=== PATIENT | male | born 1985 | race Caucasian/White ===

== ENCOUNTER 2021-12-28 17:50 | Emergency (ER) | payer MEDICAID, SELFPAY ==
--- NOTE | ~2021-12-28 | XR_ITS ---
XR hand RT min 3V DATE: 12/28/2021 18:15 INDICATION: Jamming injury. Dorsal pain and swelling in region of fifth metacarpal TECHNIQUE: 3 views COMPARISON: None FINDINGS: There is soft tissue swelling of the dorsum of the right hand. No fracture, dislocation, periosteal reaction or bone destruction, joint space narrowing, erosive clay[place] nge, radiopaque foreign body or subcutaneous emphysema is noted. IMPRESSION: Dorsal soft tissue swelling Reviewed, dictated and finalized at location A. IMPRESSION: Dorsal soft tissue swelling
[2021-12-28 18:07] VITALS: BP 169/94; PULSE 87; RESP 20; TEMP 36.6; O2SAT 100
--- NOTE | 2021-12-28 18:27 | ED.UPPEXIN ---
HPI - Extremity Injury (Upper) General Chief Complaint: Extremity Injury, Upper Stated Complaint: Right Hand Injury Time Seen by Provider: 12/28/21 18:15 Source: patient, RN notes reviewed and old records reviewed Mode of arrival: ambulatory Limitations: no limitations History of Present Illness HPI narrative: 36 year old male who presents to [facility] care with complaints of injury to his right hand which occurred this morning. He reports that he was using a hydraulic press and his right hand got caught. He has noted soft tissue swelling to his dorsal right hand with pain to area along 5th metatarsal area. Patient reports that he has used ice and has been elevating his right hand, describes pain as throbbing.Patient has adequate sensation and circulation to right hand with mobility increasing his discomfort.Patient is right hand dominant. MD complaint: injury to: right and hand Onset (ago): hour(s) (this morning) Other Extremity Injury: Right: hand Other injuries: none Handedness: right Place: home Severity: mild Severity scale (1-10): 3 Exacerbating factors: movement of extremity Context: direct blow Treatments prior to arrival: cold therapy Related Data Home Medications Medication Instructions Recorded Confirmed No Home Medications 12/28/21 12/28/21 Allergies Allergy/AdvReac Type Severity Reaction Status Date / Time No Known Allergies Allergy Verified 12/28/21 18:10 Review of Systems Review of Systems: CONSTITUTIONAL: Denies fever, chills, or sweats. EYES: Denies visual changes, redness, or discharge. ENT: Denies rhinorrhea, congestion, sore throat, or otalgia. CARDIOVASCULAR: Denies chest pain, palpitations, or edema. RESPIRATORY: Denies cough or dyspnea. GASTROINTESTINAL: Denies abdominal pain, nausea, vomiting, or diarrhea. GENITOURINARY: Denies dysuria or hematuria. SKIN: Denies rash or itching. MUSCULOSKELETAL: Denies back pain,positive pain to his right hand with swelling, or myalgia. NEUROLOGIC: Denies headache, numbness, or weakness. PSYCHIATRIC: Denies anxiety or depression. All systems reviewed & are unremarkable except as noted in HPI and below PMFSH Past Medical History Medical History (Updated 12/29/21 @ 07:34 by Fay aKtz NP) Fracture of left upper extremity Surgical History Surgical History (Updated 12/29/21 @ 07:28 by Fay Katz NP) History of tonsillectomy and adenoidectomy Social History Social History (Updated 12/29/21 @ 07:29 by Fay Katz NP) Smoking packs per day: 1 Smoking cigarettes per day: 20.0 Years smoked: 15 Smoking pack-years: 15.00 Smoking status: Current every day smoker Comments At time of signature, agree with nursing past medical, surgical, social and family history. There is no relevant family history pertinent to the presenting complaint Exam Narrative: GENERAL: Well-appearing, well-nourished, and in no acute distress. HEAD: Normocephalic, atraumatic. EYES: PERRLA and EOMI. ENT: Nares clear, no rhinorrhea or epistaxis. Mucous membranes moist.TM's normal with good light reflex, throat pink with no lesions or exudates, no tonsils present NECK: Supple.no lymphadenopathy CHEST: Clear to auscultation. No respiratory distress.SAO2 100% on room air HEART: Regular rate and rhythm. No murmur heard. Normal peripheral pulses. ABDOMEN: Soft, nontender, nondistended, normal active bowel sounds. EXTREMITIES: Normal range of motion. No edema.Exception noted to right dorsal hand which has noted soft tissue swelling with pain along 5h metacarpal region, right radial pulse strong, nail beds have brisk capillary refill, mobility of right hand increases pain. SKIN: Warm, dry, no rash. NEURO: No focal deficits. Alert and oriented x3. Course Course Level of Care: Express Care Visit Vital Signs Vital signs: Vital Signs Temperature 36.6 C 12/28/21 18:07 Pulse Rate 87 12/28/21 18:07 Respiratory Rate 20 12/28/21 18:07 Blood Pressure
== END 2021-12-28 18:45 | disposition home or self-care (01) ==
PROVIDERS: Emergency Provider Registered Nurse
DX: S69.91XA Unspecified injury of right wrist, hand and finger(s), initial encounter (principal); X58.XXXA Exposure to other specified factors, initial encounter; F17.210 Nicotine dependence, cigarettes, uncomplicated
CPT/HCPCS: 73130; 99203; G0463

== ENCOUNTER 2023-08-15 12:59 | Emergency (ER) | payer OTHER, SELFPAY ==
[2023-08-15 13:05] VITALS: BP 162/114; PULSE 71; RESP 18; TEMP 36.4; O2SAT 98
--- NOTE | 2023-08-15 13:46 | ED.EAR ---
HPI - Ear Problem General Chief complaint: Ear Stated complaint: Ear Problem Time Seen by Provider: 08/15/23 13:15 Source: patient Mode of arrival: ambulatory Limitations: no limitations History of Present Illness HPI Narrative: Earl is a 38-year-old male patient presenting to the clinic today with complaints of bilateral decreased hearing. He reports that he feels as though his ears are clogged up. Tried to use hot water and Q-tips to remove ear wax but made it worse. Related Data Allergies Allergy/AdvReac Type Severity Reaction Status Date / Time No Known Allergies Allergy Verified 12/28/21 18:10 Review of Systems Review of Systems: Pertinent positives per HPI. Patient denies any fever, chills, rash, headache, visual changes, dizziness, cough, runny nose, sore throat, shortness of breath, chest pain, palpitations, nausea, vomiting, diarrhea, constipation, abdominal pain, or any urinary issues. PMFSH Past Medical History Medical History (Updated 08/15/23 @ 14:06 by Earl Graham APRN) Fracture of left upper extremity Surgical History Surgical History (Updated 12/29/21 @ 07:28 by Fay Katz NP) History of tonsillectomy and adenoidectomy Social History Social History (Updated 12/29/21 @ 07:29 by Fay Katz NP) Smoking packs per day: 1 Smoking cigarettes per day: 20.0 Years smoked: 15 Smoking pack-years: 15.00 Smoking status: Current every day smoker Comments At the time of my signature, I reviewed and agree with the nursing past medical, surgical, social, and family history. There is no relevant family history pertinent to the patient complaint. Exam Narrative: General: Well-developed, well nourished, in no apparent distress Head: Normocephalic, atraumatic Eyes: Pupils equally round and reactive to light bilaterally, EOM intact, sclera and conjunctive clear, no discharge, lids normal Ears: Bilateral cerumen impaction, tMs intact and clear, ear canals clear, no drainage, grossly hearing normal. Nose: Nares patent, no discharge, no inflammation, no sinus tenderness. Mouth: Oropharynx without lesions or masses, good dentition, MMM. Neck: Supple, trachea midline, no enlargement of anterior or posterior cervical nodes, no thyroid masses or goiter palpable. Cardio: Regular rate and rhythm, s1 and s2 normal, no murmur appreciated. Resp: Clear to auscultation bilaterally anteriorly and posteriorly, no rhonchi, rales, wheezing or rubs Course Course Emergency Course: Portions of this record may have been created with voice recognition software. Level of Care: Express Care Visit Vital Signs Vital signs: Vital Signs Temperature 36.4 C L 08/15/23 13:05 Pulse Rate 71 08/15/23 13:05 Respiratory Rate 18 08/15/23 13:05 Blood Pressure 162/114 H 08/15/23 13:05 Pulse Oximetry 98 08/15/23 13:05 Oxygen Delivery Room Air 08/15/23 13:05 Temperature 36.4 C L 08/15/23 13:05 Pulse Rate 71 08/15/23 13:05 Respiratory Rate 18 08/15/23 13:05 Blood Pressure 162/114 H 08/15/23 13:05 Pulse Oximetry 98 08/15/23 13:05 Oxygen Delivery Room Air 08/15/23 13:05 Vital signs reviewed Medical Decision Making Vital Signs Vital Signs: Vital Signs Temperature 36.4 C L 08/15/23 13:05 Pulse Rate 71 08/15/23 13:05 Respiratory Rate 18 08/15/23 13:05 Blood Pressure 162/114 H 08/15/23 13:05 Pulse Oximetry 98 08/15/23 13:05 Oxygen Delivery Room Air 08/15/23 13:05 Temperature 36.4 C L 08/15/23 13:05 Pulse Rate 71 08/15/23 13:05 Respiratory Rate 18 08/15/23 13:05 Blood Pressure 162/114 H 08/15/23 13:05 Pulse Oximetry 98 08/15/23 13:05 Oxygen Delivery Room Air 08/15/23 13:05 Discharge Plan Discharge Clinical Impression: Bilateral impacted cerumen, Irritation of external ear canal Patient Disposition: Home, Self-Care Condition: Stable Instructions: Antibiotic Form, Swimmer's Ear (ED)
== END 2023-08-15 14:13 | disposition home or self-care (01) ==
PROVIDERS: Emergency Provider Nurse Practitioner Family
DX: H61.23 Impacted cerumen, bilateral (principal); H61.893 Other specified disorders of external ear, bilateral; F17.210 Nicotine dependence, cigarettes, uncomplicated
CPT/HCPCS: 69209; 99213; A9270; G0463

== ENCOUNTER 2024-02-20 13:26 | Emergency (ER) | payer OTHER, SELFPAY ==
[2024-02-20 13:30] VITALS: BP 142/103; PULSE 80; RESP 18; TEMP 36.6; O2SAT 99
--- NOTE | 2024-02-20 13:43 | ED.BACK ---
HPI - Back Pain/Injury General Chief Complaint: Back Pain/Injury Stated Complaint: Lower back pain Time Seen by Provider: 02/20/24 13:44 Source: patient, RN notes reviewed and old records reviewed Mode of arrival: ambulatory Limitations: no limitations History of Present Illness HPI Narrative: 38 year old male presents to [facility] care with complaints of 6 week duration of waxing and waning right lower back pain with radiation of pain down right leg. Patient reports that for the past 10 days he has had increased pain in his right lower back with sciatica admits to some pain at times across lower back. Patient reports that he does get some relief with rest and heat and Ibuprofen but worsens when performing lifting , bending standing, sitting, walking while at work. Patient reports no known specific injury to back or any fall. Patient reports that he does not have PCP and needs to get established with PCP requesting list of physicians. Patient has limping gait noted, pain with positiion changes noted and verbalized. Patient denies any numbness or tingling to his legs,reports no difficulty with bowel or bladder function and denies any saddle paraesthesia. MD elicited complaint: back pain Pertinent past history: other (6 week duration with increased symptoms for past 10 days) Onset (ago): day(s) (increased symptoms for 10 days.) Severity: moderate Similar Symptoms Previously: Yes Quality: sharp and aching Location: right lower back (with sciatica) Related Data Allergies Allergy/AdvReac Type Severity Reaction Status Date / Time No Known Allergies Allergy Verified 02/20/24 13:29 Review of Systems Review of Systems: CONSTITUTIONAL: Denies fever, chills, or sweats. EYES: Denies visual changes, redness, or discharge. ENT: Denies rhinorrhea, congestion, sore throat, or otalgia. CARDIOVASCULAR: Denies chest pain, palpitations, or edema. RESPIRATORY: Denies cough or dyspnea. GASTROINTESTINAL: Denies abdominal pain, nausea, vomiting, or diarrhea. GENITOURINARY: Denies dysuria or hematuria. SKIN: Denies rash or itching. MUSCULOSKELETAL:Reports right sided back pain with sciatica,no other joint pain, or myalgia. NEUROLOGIC: Denies headache, numbness, or weakness. PSYCHIATRIC: Denies anxiety or depression. All systems reviewed & are unremarkable except as noted in HPI and below [facility] Past Medical History Medical History (Updated 02/21/24 @ 11:46 by Fay Katz NP) Dental abscess Fracture of left upper extremity Kidney stone Surgical History Surgical History (Updated 02/21/24 @ 11:45 by Fay Katz NP) History of orthopedic surgery left arm and left foot History of tonsillectomy and adenoidectomy Social History Social History (Updated 02/21/24 @ 11:41 by Fay Katz NP) Smoking packs per day: 1 Smoking cigarettes per day: 20.0 Years smoked: 15 Smoking pack-years: 15.00 Smoking status: Current every day smoker Alcohol intake: current Alcohol use details: social Substance use type: marijuana Living arrangements: with family Gender identity (if verbalized by the patient): Male Comments At time of signature, agree with nursing past medical, surgical, social and family history. There is no relevant family history pertinent to the presenting complaint Exam Narrative: GENERAL: Well-appearing, well-nourished, and in no acute distress. HEAD: Normocephalic, atraumatic. EYES: PERRLA and EOMI. ENT: Nares clear, no rhinorrhea or epistaxis. Mucous membranes moist.poor dentition NECK: Supple. no lymphadenopathy CHEST: Clear to auscultation. No respiratory distress. SAO2 99% on room air HEART: Regular rate and rhythm. No murmur heard. Normal peripheral pulses. ABDOMEN: Soft, nontender, nondistended, normal active bowel sounds. EXTREMITIES: Normal range of motion. No edema. Pain to right lower back over SI joint with radiation down right leg to lateral foot at times, Patient noted to have limping g
== END 2024-02-20 14:15 | disposition home or self-care (01) ==
PROVIDERS: Emergency Provider Registered Nurse
DX: M54.41 Lumbago with sciatica, right side (principal); F17.210 Nicotine dependence, cigarettes, uncomplicated; F12.90 Cannabis use, unspecified, uncomplicated
CPT/HCPCS: 99213; G0463

== ENCOUNTER 2024-09-17 09:27 | Emergency (ER) | payer OTHER, SELFPAY ==
[2024-09-17 09:37] VITALS: BP 158/117; PULSE 113; RESP 18; TEMP 37.2; O2SAT 99
--- NOTE | 2024-09-17 10:12 | ED.BACK ---
HPI - Back Pain/Injury General Chief Complaint: Back Pain/Injury Stated Complaint: Lower back pain Time Seen by Provider: 09/17/24 10:13 Source: patient Mode of arrival: ambulatory Limitations: no limitations History of Present Illness HPI Narrative: 39-year-old male presented for complaint of right lower back pain radiating to the right foot. Also reports pain across the low back when he bends over. Pain is described as a pinching sensation and says he has numbness or tingling to the little toe. Endorses a history of sciatica says this feels the same. 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 He states he plans to follow-up with his PCP. Denies numbness, tingling, weakness of the lower extremities, or change in gait, saddle paresthesia or loss of bowel or bladder. Taking ibuprofen. Related Data Home Medications ?Medication ?Instructions ?Recorded ?Confirmed ?Last Taken ?Type amlodipine 5 mg tablet mg 09/17/24 Unknown History Allergies Allergy/AdvReac Type Severity Reaction Status Date / Time Penicillins Allergy Unknown Unknown Verified 09/17/24 09:42 Review of Systems Review of Systems: CONSTITUTIONAL: Denies body aches, fever, chills EYES: Denies visual changes CARDIOVASCULAR: Denies chest pain, palpitations, or edema. RESPIRATORY: Denies cough or dyspnea. GASTROINTESTINAL: Denies abdominal pain, nausea, vomiting, or diarrhea. SKIN: Denies rash, itching, or wounds. MUSCULOSKELETAL: reports back pain All systems reviewed & are unremarkable except as noted in HPI and below PMFSH Past Medical History Medical History Dental abscess Kidney stone Fracture of left upper extremity Surgical History Surgical History History of orthopedic surgery left arm and left foot History of tonsillectomy and adenoidectomy Social History Social History Smoking packs per day: 1 Smoking cigarettes per day: 20.0 Years smoked: 15 Smoking pack-years: 15.00 Smoking status: Current every day smoker Alcohol intake: current Alcohol use details: social Substance use type: marijuana Living arrangements: with family Gender identity (if verbalized by the patient): Male Comments At time of signature, I have reviewed and agree with nursing past medical, surgical, social and family history unless otherwise noted. Please see nursing chart for further information. There is no relevant family history pertinent to the presenting complaint Exam Narrative: GENERAL: Well-appearing CHEST: Speaks in full sentences. No respiratory distress. HEART: Regular rate and rhythm. Normal and equal peripheral pulses. MUSC: No Vertebral point tenderness. Right Lumbar paraspinal tenderness extending to right posterior hip. BLEs with normal strength and sensation, normal range of motion. endorses pain with movement. no edema or ecchymosis, No open wounds, or obvious deformity; alignment normal, pulse palpable and equal bilaterally, skin warm, dry, pink. Capillary refill less than 3 seconds. Gait steady. SKIN: Warm, dry, no rash. NEURO: Alert and oriented x3. Course Course Emergency Course: Patient is aware of diagnosis, understands and agrees to treatment plan. Anticipatory guidance given. Patient agrees to follow-up as directed and is aware of reasons to seek care at the emergency department. Portions of this record may have been created with voice recognition software Level of Care: Express Care Visit Vital Signs Vital signs: Vital Signs Temperature 98.9 F 09/17/24 09:37 Pulse Rate 113 H 09/17/24 09:37 Respiratory Rate 18 09/17/24 09:37 Blood Pressure 158/117 H 09/17/24 09:37 Pulse Oximetry 99 09/17/24 09:37 Oxygen Delivery Room Air 09/17/24 09:37 Temperature 98.9 F 09/17/24 09:37 Pulse Rate 113 H 09/17/24 09:37 Respiratory Rate 18 09/17/24 09:37 Blood Pressure 158/117 H 09/17/24 09:37 Pulse Oximetry 99 09/17/24 09:37 Oxygen Delivery Room Air 09/17/24 09:37 Reviewed MDM - Back Pain/Injury MDM Narrative Medical decision making narrative: discussed physical exam findings and reviewed prescriptions. He states he is mostly here for work note at this time. Advise close follow-up with PCP for additional days off or additional orders. Advised supportive measures and s/s to go to the ER. Pt is stable and appropriate for outpt treatment and follow up with pcp. Differential Diagnosis Differential diagnosis: Likely lumbar radiculopathy, sciatica, strain of lumbar region, renal colic, pyelonephritis and discitis Discharge Plan Discharge Clinical Impression: Lumbar radiculopathy Patient Disposition: Home, Self-Care Condition: Stable Instructions: Antibiotic Form, Lumbar Radiculopathy (ED) Additional Instructions: Your blood pressure reading was elevated (above 120/80) please follow-up with your primary care provider for further evaluation and management. If you develop worsening Blood Pressure symptoms, (headache, vision changes, dizziness, vomiting, chest pain, etc) go to the ER. Call 911. Please follow up with your Primary Care Doctor within 48-72 hours - call for an appointment. Avoid lifting. pushing. pulling, or anything that worsens the pain. Walking and other gentle exercising several times a week has been shown to improve back pain; bed rest is not recommended. Take Motrin 800mg every 8 hours with food for the next 2-3 days, along with Tylenol 1000mg every 8 hours Over the counter pain cream like icy/hot or biofreeze, or Salon pas/lidocaine 4% patch. You may apply heat or cold to the area as needed. go to the ER immediately If you experience any worsening pain, swelling, numbness, weakness, problems with bladder or bowel function, weakness or loss of feeling in one or both of your legs, or any other serious concerns. Patient Language: Bangladeshi Prescriptions: New methylprednisolone [Medrol (Ed)] 4 mg tablets,dose pack See Rx Instructions .ROUTE .COMPLEX Qty: 21 0RF Rx Instructions: orally per package directions No Action amlodipine 5 mg tablet Follow-up/Referrals: Alfredo,Isael Perez MD [Primary Care Provider] - Stand Alone Forms: Work/School Release IP
== END 2024-09-17 10:31 | disposition home or self-care (01) ==
PROVIDERS: Emergency Provider Nurse Practitioner Family; PCP Internal Medicine
DX: M54.16 Radiculopathy, lumbar region (principal); F17.210 Nicotine dependence, cigarettes, uncomplicated; F12.90 Cannabis use, unspecified, uncomplicated
CPT/HCPCS: 99213; G0463

== ENCOUNTER 2024-10-18 09:34 | Emergency (ER) | payer OTHER, SELFPAY ==
[2024-10-18 09:54] VITALS: BP 150/104; PULSE 79; RESP 16; TEMP 36.4; O2SAT 100
--- NOTE | 2024-10-18 10:04 | ED_ITS ---
HPI - Back Pain/Injury General Chief Complaint: Back Pain/Injury Stated Complaint: Back Pain Time Seen by Provider: 10/18/24 10:04 Source: patient Mode of arrival: ambulatory Limitations: no limitations History of Present Illness HPI Narrative: 39-year-old male presents with complaint of low back pain radiating to right buttock and into right leg. Reports radiation to right lower extremity is intermittent. Patient states he has been seen here 2 other times for his back pain and also saw his primary care physician. Had x-rays of lumbar spine and was told possible bulging disc. Has not followed back up with his primary care physician for additional imaging. Patient prescribed tramadol by primary care physician but patient states this does not help his pain. Woke up this morning with low back pain and attempted to go to work. Had to leave early due to decreased range of motion due to pain. Patient ambulatory with steady gait. Denies weakness, numbness to lower extremities. No loss of bowel or bladder. Did not take any pain medication prior to arrival. Patient states continue with cycle comes here for pain control, it gets 3 days off work, back pain is better for 2-3 days and then has back pain again . All systems reviewed and negative except as noted above. Related Data Home Medications ?Medication ?Instructions ?Recorded ?Confirmed ?Last Taken ?Type amlodipine 5 mg tablet mg 09/17/24 Unknown History tramadol 50 mg tablet mg 10/18/24 Unknown History Allergies Allergy/AdvReac Type Severity Reaction Status Date / Time Penicillins Allergy Unknown Unknown Verified 09/17/24 09:42 Review of Systems Review of Systems: CONSTITUTIONAL: Denies fever, chills, or sweats. EYES: Denies visual changes, redness, or discharge. ENT: Denies rhinorrhea, congestion, sore throat, or otalgia. CARDIOVASCULAR: Denies chest pain, palpitations, or edema. RESPIRATORY: Denies cough or dyspnea. GASTROINTESTINAL: Denies abdominal pain, nausea, vomiting, or diarrhea. GENITOURINARY: Denies dysuria or hematuria. SKIN: Denies rash or itching. MUSCULOSKELETAL: Reports low back pain with radiation to right lower extremity. Denies joint pain, or myalgia. NEUROLOGIC: Denies headache, numbness, or weakness. PSYCHIATRIC: Denies anxiety or depression. All other systems reviewed are negative, except as documented in HPI. [facility] Past Medical History Medical History Dental abscess Kidney stone Fracture of left upper extremity Surgical History Surgical History History of orthopedic surgery left arm and left foot History of tonsillectomy and adenoidectomy Social History Social History Smoking packs per day: 1 Smoking cigarettes per day: 20.0 Years smoked: 15 Smoking pack-years: 15.00 Smoking status: Current every day smoker Alcohol intake: current Alcohol use details: social Substance use type: marijuana Living arrangements: with family Gender identity (if verbalized by the patient): Male Comments At time of signature, agree with nursing past medical, surgical, social and family history. There is no relevant family history pertinent to the presenting complaint. Exam Narrative: GENERAL: This is a well-nourished, well-developed patient, in no apparent distress. HEAD: normocephalic, atraumatic. EYES: PERRL. Sclera clear/white. Vision is grossly intact. EARS: External ears normal NOSE: External nose normal NECK: Neck supple, non-tender without lymphadenopathy, masses or thyromegaly. CARDIOVASCULAR: Regular rate and rhythm without murmurs, gallops, or rubs. RESPIRATORY: Clear to auscultation. Breath sounds equal bilaterally. No wheezes, rales, or rhonchi. SKIN: warm, Dry, intact with no suspicious lesions or rash, good texture and turgor. NEURO: awake, alert, and oriented to person, place and time. There were no obvious focal neurologic abnormalities. EXTREMITIES: No joint tenderness, effusion, or edema noted. BACK: tenderness to lumbar spine L3 through L5. No deformity noted. Some mus cular tenderness to right side and SI joint tenderness. Positive right straight leg raise. Lower extremity strength 4/5 bilaterally. Course Course Level of Care: Express Care Visit Vital Signs Vital signs: Vital Signs Temperature 36.4 C L 10/18/24 09:54 Pulse Rate 79 10/18/24 09:54 Respiratory Rate 16 10/18/24 09:54 Blood Pressure 150/104 H 10/18/24 09:54 Pulse Oximetry 100 10/18/24 09:54 Oxygen Delivery Room Air 10/18/24 09:54 Temperature 36.4 C L 10/18/24 09:54 Pulse Rate 79 10/18/24 09:54 Respiratory Rate 16 10/18/24 09:54 Blood Pressure 150/104 H 10/18/24 09:54 Pulse Oximetry 100 10/18/24 09:54 Oxygen Delivery Room Air 10/18/24 09:54 Reviewed MDM - Back Pain/Injury MDM Narrative Medical decision making narrative: patient treated with Toradol and prednisone at [facility]. Will discharge home with prednisone erythematous oral accident. Recommend he continue to take tramadol prescribed by primary care physician. Take Tylenol every 6-8 hours. Schedule follow-up appoint with primary care physician. Will go to the ER for any worsening of symptoms. No neuro deficits at time of discharge. Patient is aware of diagnosis, understands and agrees to treatment plan. Anticipatory guidance given. Patient agrees to follow-up as directed and is aware of reasons to seek care at the emergency department. Portions of this record may have been created with voice recognition software Differential Diagnosis Differential diagnosis: Likely lumbar radiculopathy, sciatica and strain of lumbar region Discharge Plan Discharge Clinical Impression: Acute low back pain with right-sided sciatica Patient Disposition: Home, Self-Care Condition: Stable Instructions: Sciatica (ED), Lumbar Radiculopathy (ED) Additional Instructions: take medications as prescribed. Cyclobenzaprine as a muscle relaxant may cause drowsiness. Do not drive while taking this medication. Continue taking tramadol as prescribed by her primary care physician. In addition to tramadol may take ibuprofen or Tylenol every 6-8 hours as needed for pain. Alternate between ice and heat. schedule a follow-up appointment with your primary care physician. For any worsening of your back pain, loss of bowel or bladder, numbness Or weakness to lower extremities go to the ER. Patient Language: Vincentian Prescriptions: New cyclobenzaprine 10 mg tablet 10 mg PO Q8H PRN (Reason: muscle spasm) Qty: 30 0RF prednisone 20 mg tablet 40 mg PO DAILY 5 Days Qty: 10 0RF No Action amlodipine 5 mg tablet tramadol 50 mg tablet Follow-up/Referrals: Alfredo,Isael Perez MD [Primary Care Provider] - Stand Alone Forms: Work/School Release IP Time of Disposition: 10:36
--- OUTSIDE RECORDS SUMMARY | 2024-10-18 10:09 | XMS_ITS | Clinical Summary ---
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 30 Capsule 3 5 Active traMADol (ULTRAM) 50 MG TabletIndication s:Acute back pain with sciatica, right Take 1 Tablet by mouth every 6 hours as needed for Moderate or more severe pain. 28 Tablet 5 Active amLODIPine (NORVASC) 5 MG TabletIndication s:Health maintenance examination (Adult) Take 1 Tablet by mouth daily. 30 Tablet 1 4 09/23/19 25 Discontinu ed(Reorder ) amLODIPine (NORVASC) 5 MG TabletIndication s:Health maintenance examination (Adult) Take 1 Tablet by mouth daily. 30 Tablet 1 5 09/27/19 25 Discontinu ed(Med List Clean Up) Active Problems Problem Noted Date Diagnosed Date Essential hypertension, benign 08/31/2024 Alcohol abuse 08/31/2024 Tobacco use 08/31/2024 Encounters Date Type Department Care Team Description 09/30/2024 Results Follow-Up [facility] - Internal [facility] - [place] [address] [place] [address] Isael Fuentes MD 09/28/2024 11:44 AM PUBLIC HEALTH INFORMATICIAN - 09/28/2024 11:59 PM PUBLIC HEALTH INFORMATICIAN [facility] [address] [place] [address] Isael Fuentes MD Discharge Disposition: Discharged to home or Selfcare 09/27/2024 1:30 PM PUBLIC HEALTH INFORMATICIAN Office Visit [facility] [address] [place] [address] Isael Fuentes MD Acute back pain with sciatica, right (Primary Dx); Essential hypertension, benign Discharge Disposition: Discharged to home or Selfcare 09/27/2024 Travel 09/23/2024 Refill [facility] [address] [place] [address] Isale Fuentes MD Medication Refill 08/31/2024 2:00 PM PUBLIC HEALTH INFORMATICIAN Office Visit [facility] [address] [place] [address] Isael Fuentes MD Health maintenance examination (Adult) (Primary Dx); Essential hypertension, benign; Alcohol abuse; Tobacco use Discharge Disposition: Discharged to home or Selfcare 08/31/2024 Travel from Last 3 Months Family History Medical History Relation Name Comments No Known Problems Mother No Known Problems Sister 1 No Known Problems Sister 2 No Known Problems Sister 3 Relation Name Status Comments Father Mother Alive Sister 1 Alive Sister 2 Alive Sister 3 Alive Social History Tobacco Use Types Packs/Day Years Used Date Smoking Tobacco: Every Day Cigarettes Passive Smoke Exposure: Current Smokeless Tobacco: Never Tobacco Cessation:Ready to Q uit: No; Counseling Given: No Alcohol Use Standard Drinks/Week Comments Yes 0 (1 standard drink = 0.6 oz pur e alcohol) [facility] Utilities Answer Date Recorded In the past 12 months has [employer], gas, oil, or water company threatened to shut off services in your home? No 08/31/2024 Social Connection and Isolation Panel [NHANES] A nswer Date Recorded In a typical week, how many times do you talk on the phone with family, friends, or neighbors? Twice a week 08/31/2024 How often do you get togethe r with friends or relatives? Once a week 08/31/2024 How often do you attend baptist or confucianism serv ices? Patient declined 08/31/2024 Do you belong to any clubs o r organizations such as baptist groups, unions, fraternal or athletic groups, or school groups? No 08/31/2024 How often do you attend meet ings of the clubs or organizations you belong to? Patient declined 08/31/2024 Are you , , di vorced, , never , or living with a partner? 08/31/2024 AUDIT-C Answer Date Recorded Q1: How often do you have a drink containing alc ohol? 2-3 times a week 08/31/2024 Q2: How many drinks containi ng alcohol do you have on a typical day when you are drinking? 3 or 4 08/31/2024 Q3: How often do you have si x or more drinks on one occasion? Monthly 08/31/2024 Overall Financial Resource Strain (CARDIA) Answe r Date Recorded How hard is it for you to pa y for the very basics like food, housing, medical care, and heating? Somewhat hard 08/31/2024 PHQ-2 Answer Date Recorded Total Score - Questions 1-9 0 09/15 [facility] - Occupational Stress Questionnaire Answer Date Recorded Do you feel stress - tense, restless, nervous, or anxious, or unable to sleep at night because your mind is troubled all the time - these days? Very much 08/31/2024 Exercise Vital Sign Answer Date Recorde d On average, how many days pe r week do you engage in moderate to strenuous exercise (like a brisk walk)? 5 days 08/31/2024 On average, how many minutes do you engage in exercise at this level? 20 min 08/31/2024 Hunger Vital Sign Answer Date Recorded Within the past 12 months, y ou worried that your food would run out before you got the money to buy more. Never true 08/31/20 24 Within the past 12 months, t he food you bought just didn't last and you didn't have money to get more. Never true 08/31/2024 PRAPARE - Transportation Answer Date Re corded In the past 12 months, has l ack of transportation kept you from medical appointments or from getting medications? No 08/15 In the past 12 months, has l ack of transportation kept you from meetings, work, or from getting things needed for daily living? No 08/31/2024 Housing Stability Vital Sign Answer [place] e Recorded In the last 12 months, was t here a time when you were not able to pay the mortgage or rent on time? No 08/31/2024 In the past 12 months, how m any times have you moved where you were living? 0 08/31/2024 At any time in the [facility], were you homeless or living in a long-term (including now)? No 08/31/2024 Sexually Active Control Partners Comments Yes Sex and Gender Information Value Date Recorded Sex Assigned at Not on file Legal Sex Male 11:46 AM PUBLIC HEALTH INFORMATICIAN Gender Identity Not on file Sexual Orientation Not on file Last Filed Vital Signs Vital Sign Reading Time Taken Comments Blood Pressure 156/88 09/27/2024 1:28 PM PUBLIC HEALTH INFORMATICIAN Pulse 84 09/27/2024 1:28 PM PUBLIC HEALTH INFORMATICIAN Temperature 36.6 ??C (97.9 ??F) 09/27/2024 1:28 PM CS T Respiratory Rate - - Oxygen Saturation 99% 09/27/2024 1:28 PM PUBLIC HEALTH INFORMATICIAN Inhaled Oxygen Concentration - - Weight 93 kg (205 lb) 09/27/2024 1:28 PM PUBLIC HEALTH INFORMATICIAN Height 182.9 cm (6') 09/27/2024 1:28 PM PUBLIC HEALTH INFORMATICIAN Body Mass Index 27.8 09/27/2024 1:28 PM PUBLIC HEALTH INFORMATICIAN Plan of Treatment Upcoming Encounters Date Type Department Care Team (Late st Contact Info) Description 11/01/2024 2:30 PM PUBLIC HEALTH INFORMATICIAN Office Visit [facility] - [facility] - [place] [address] [place] [address] Isael Fuentes MD [address] [place] [address] Health Maintenance Due Date Last Done Comments Hepatitis C Virus (HCV) Screening 1983 TdaP Immunization 1983 Hepatitis B Immunization (1 of 3 - 19+ 3-dose series) 2002 Pneumococcal Immunization Combined (1 of 2 - PCV) 2002 SARS-COV-2 Immunization (2 - season) 2024 12/15/2020 Respiratory Syncytial Virus (RSV) Immunization (Adult) (1 - 1-dose 75+ series) 2058 Influenza Immunization Discontinued Meningococcal Immunization (ACWY) Aged Out No longer eligible based on patient's age to complete this topic Rotavirus Immunization Aged Out No lo nger eligible based on patient's age to complete this topic Procedures Procedure Name Priority Date/Time Associated Diagnosis Comments XR LUMBAR SPINE MINIMUM 4 VIEWS Routine 09/28/2024 12:27 PM PUBLIC HEALTH INFORMATICIAN Acute back pain with sciatica, right from Last 3 Months Results * XR LUMBAR SPINE MINIMUM 4 VIEWS (09/28/2024 12:27 PM PUBLIC HEALTH INFORMATICIAN) Anatomical Region Laterality Modality Spine, L-spine N/A Digital Radiogra phy 09/29/2024 10:2 6 AM PUBLIC HEALTH INFORMATICIAN Impressions 09/29/2024 10:28 AM PUBLIC HEALTH INFORMATICIAN IMPRESSION: Mild L5-S1 degenerative disc disease with inferior lumbar facet osteoarthritis. Narrative 09/29/2024 10:28 AM PUBLIC HEALTH INFORMATICIAN EXAM DESCRIPTION: XR LUMBAR SPINE MINIMUM 4 VIEWS REASON FOR STUDY: c/o lower back pain from fall 2 weeks ago ? FINDINGS: Five views submitted without comparison. No acute fracture. ??Alignment is normal. ??Mild L5-S1 degenerative disc disease is present. ??Mild inferior lumbar facet osteoarthritis is present. THIS IS AN ELECTRONICALLY VERIFIED FINAL REPORT 09/29/2024 10:26 AM - Electronically signed by ??Rohit Forrest M.D. MF: CK D: ??09/29/2024 10:26 AM T: ??09/29/2024 10:26 AM Report ID: [id number] Reading Location: ??[id number] Procedure Note Rohit Forrest MD - 09/29/2024 EXAM DESCRIPTION: XR LUMBAR SPINE MINIMUM 4 VIEWS REASON FOR STUDY: c/o lower back pain from fall 2 weeks ago FINDINGS: Five views submitted without comparison. No acute fracture. Alignment is normal. Mild L5-S1 degenerative disc disease is present. Mild inferior lumbar facet osteoarthritis is present. THIS IS AN ELECTRONICALLY VERIFIED FINAL REPORT 09/29/2024 10:26 AM - Electronically signed by Rohit Forrest M.D. MF: CK Report ID: [id number] Reading Location: [id number] IMPRESSION: Mild L5-S1 degenerative disc disease with inferior lumbar facet osteoarthritis. 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
[2024-10-18] MEDS: KETOROLAC (*BKC) 60 MG/2 ML VIAL IM (10:25)
[2024-10-18] MEDS: predniSONE 20 MG TABLET 60 MG PO (10:26)
== END 2024-10-18 10:43 | disposition home or self-care (01) ==
PROVIDERS: Emergency Provider Nurse Practitioner Family; PCP Internal Medicine
DX: M54.41 Lumbago with sciatica, right side (principal); F17.210 Nicotine dependence, cigarettes, uncomplicated
CPT/HCPCS: 96372; 99213; G0463; J1885; J7512